=== PATIENT | female | born 1995 | race Caucasian/White ===

== ENCOUNTER 2017-11-18 08:54 | Inpatient (IN) ==
[2017-11-18] MEDS ORDERED: LIDOCAINE 1% (10mg/ml) 2mL INJ PF SDV ID PRN (09:28)
[2017-11-18] MEDS ORDERED: MAG-AL + SIM ORAL LIQUID 30ml PO PRN (09:28)
[2017-11-18] MEDS ORDERED: CARBOPROST 250 MCG/ML INJECTION IM PRN (09:28)
[2017-11-18] MEDS ORDERED: CALCIUM CARBONATE Chewable 500mg TABLET PO PRN (09:28)
[2017-11-18] MEDS ORDERED: ACETAMINOPHEN 500 MG TABLET PO PRN (09:28)
[2017-11-18] MEDS ORDERED: LR 1,000 ML IV PRN (09:28)
[2017-11-18] MEDS ORDERED: METHYLERGONOVINE 0.2 MG/ML INJECTION IM PRN (09:28)
[2017-11-18 09:47] VITALS: BMI 33.4
[2017-11-18] MEDS ORDERED: D5LR 1,000 ML IV SCH (14:45)
[2017-11-18] MEDS ORDERED: HYDROCODONE/APAP 5mg/325mg TABLET PO PRN (19:25)
[2017-11-18] MEDS ORDERED: DiphenhydrAMINE 25 MG CAPSULE PO PRN (19:25)
[2017-11-18] MEDS ORDERED: HYDROCORTISONE 2.5% CREAM 30gm RECTALLY PRN (19:25)
[2017-11-18] MEDS ORDERED: RHOPHYLAC - PHARMACY CONSULT MC ONE (19:25)
[2017-11-18] MEDS ORDERED: OXYTOCIN DRIP 30 UNIT/500 ML ML IV SCH (19:30)
--- NOTE | 2017-11-18 20:17 | Labor and Delivery Note ---
DATE OF DELIVERY 11/18/2017 Amada is a 22-year-old 1 at 40 weeks 3 days gestational age who presented to Maternal/Child in spontaneous labor. I took over when she was 6 cm. She progressed steadily throughout labor. She pushed for less than 30 minutes and had a spontaneous vaginal delivery in the VENITA position. There was a nuchal cord that draped around the posterior neck that was loose and delivered through. Baby is a viable male , Apgars 8/9, weight 4265 g, name Daniel." Baby was vigorous at delivery so he was placed on mom's abdomen and the cord clamping was delayed for more than two minutes. The placenta delivered spontaneously. She had a left periurethral laceration and a right first-degree perineal laceration. These were both bleeding so they were repaired with 2-0 chromic after being injected with local. Mom and baby tolerated the delivery well. [facility]
[2017-11-18] MEDS: IBUPROFEN 800 MG TABLET PO PRN (20:30)
[2017-11-19] MEDS: IBUPROFEN 800 MG TABLET PO PRN ×2 (05:36→13:34)
--- NOTE | 2017-11-19 08:17 | OB/GYN Progress Note ---
OB-PP Progress Note - General PPD1 Maternal Group B Strep: Negative Maternal blood type: A- Maternal Rubella Status: Immune - Subjective Date: 11/19/17 Lochia: Minimal Pain: controlled Voiding: voiding Nausea or Vomiting Present: No - Objective Vital Signs: Last Vital Signs Temp 98.7 F 11/18/17 22:18 Pulse 73 11/18/17 23:10 Resp 18 11/18/17 23:10 BP 123/68 11/18/17 23:10 Urine Output: good General: alert and oriented Abdomen: fundus firm, non-tender Extremities: non-tender Edema: none Laboratory: Laboratory Results - last 24 hr 11/18/17 11/18/17 11/18/17 09:40 09:41 19:26 WBC 15.4 H RBC 4.09 Hgb 13.0 Hct 37.7 MCV 92.2 MCH 31.8 MCHC 34.5 RDW Std Deviation 41.1 Plt Count 206 MPV 10.8 Blood Type A Negative Antibody Screen Positive A* Antibody Identification Immune D RhIG Candidate? Is a candidate - Assessment Assessment: ERIN ORTIZ - Plan Plan: routine care Expected date of discharge: 11/20/17
[2017-11-19] MEDS: DOCUSATE CALCIUM 240 MG CAPSULE PO SCH (10:17)
--- NOTE | 2017-11-19 10:43 | Pharmacy Consult ---
Pharmacy Consult-Rhophylac - Laboratory Information 11/18/17 11/18/17 11/19/17 09:41 19:26 07:26 Hgb /Adult Ratio 0.0000 Blood Type A Negative RhIG Candidate? Is a candidate - Consult Information Rh FACTOR CONSULT: Mother Blood Type = A NEG Child Blood Type = B POS Hgb / Adult Ratio = 0.0000 Will give Rho D Immunglobulin 300mcg IV x 1 dose. Thank you.
[2017-11-19] MEDS ORDERED: RHO(D) IMMUNE GLOBULIN 300 MCG/2 ML INJECTION IVP ONE (10:45)
[2017-11-20] MEDS: IBUPROFEN 800 MG TABLET PO PRN (07:43)
[2017-11-20] MEDS: DOCUSATE CALCIUM 240 MG CAPSULE PO SCH ×2 (07:44→10:32)
--- NOTE | 2017-11-20 08:09 | OB/GYN Progress Note ---
OB-PP Progress Note - General PPD2 Maternal Group B Strep: Negative Maternal blood type: A- Maternal Rubella Status: Immune - Subjective Date: 11/20/17 Lochia: Minimal Pain: controlled Voiding: voiding - Objective Vital Signs: Last Vital Signs Temp 98.1 F 11/20/17 00:20 Pulse 71 11/20/17 00:20 Resp 16 11/20/17 00:20 BP 126/70 11/20/17 00:20 Pulse Ox 98 11/19/17 13:33 General: alert and oriented Abdomen: fundus firm, non-tender Extremities: non-tender Laboratory: Laboratory Results - last 24 hr 11/19/17 07:26 Hgb /Adult Ratio 0.0000 - Assessment Assessment: - Plan Plan: routine care, rhophylac (Given), discharge home, continue PNV
[2017-11-20 08:15] VITALS: BP 120/66; PULSE 66; RESP 14; TEMP 98.2; O2SAT 97
== END 2017-11-20 11:00 | disposition home or self-care (01) | DRG 775 ==
LOC: OBOBS 08:54 → MC 08:57
PROVIDERS: ADMIT Obstetrics & Gynecology; ATTEND Obstetrics & Gynecology

== ENCOUNTER 2018-04-20 16:50 | Inpatient (IN) ==
[2018-04-20] MEDS ORDERED: NS 1,000 ML IV ONE ×2 (17:12→18:57)
[2018-04-20] MEDS: SALINE FLUSH 10ml SYRINGE IVF PRN ×2 (17:24→23:09)
--- NOTE | 2018-04-20 17:30 | Emergency Department Report ---
General Adult HPI - General Chief complaint: Fever Stated complaint: lwr back leg pain,fever,chills,n/d Time Seen by Provider: 04/20/18 17:10 Source: patient Mode of arrival: ambulatory - History of Present Illness HPI narrative: Pt is a 23 yo female who presents to ER for fever. Fever started 2 days ago. Shaking/convulsing with the fever. Has been having pain in her back and legs for 2 wks. Noted warmth, redness and swelling to R knee joint 2 days ago and sxs resolved. Had a fever with swollen glands in the R preauricular and R anterior cervical region and eye redness mid February. Sxs resolved and then a week later she had a fever and congestion and swollen glands. Never sought tx for the febrile illnesses in February. Some diarrhea, nausea. Dysuria last night. [place] like she had something stuck in her throat 3-4 days ago. 5 mos . No current contraception. Is . No known ill contacts. Takes thyroid for hypothyroidism. Hasn't had thyroid checked since . - Related Data Home Medications Medication Instructions Recorded Confirmed Levothyroxine Sodium [Synthroid] 50 mcg PO ACB #0 tab 02/15/16 04/20/18 Acetaminophen [Tylenol] 325 mg PO Q4H PRN 04/20/18 04/20/18 Bisacodyl [Women's Laxative] 5 mg PO HS 04/20/18 04/20/18 Ibuprofen [Advil] 800 tab PO Q8H PRN 04/20/18 04/20/18 Pnv No.95/Ferrous Fum/Folic AC 1 tab PO DAILY 04/20/18 04/20/18 [ Tablet] Previous Rx's Medication Instructions Recorded Amoxicillin 1 tab PO Q12H #19 tab 04/20/18 Allergies Allergy/AdvReac Type Severity Reaction Status Date / Time No Known Drug Allergies Allergy Unknown Verified 04/20/18 17:13 Review of Systems All systems: reviewed and negative except as stated (fever, hips/buttocks hurt, heart races, dizziness) PFSH Patient Stated Medical History Other GI Yes: hx of pancreatitis Herpes No Human Immunodeficiency Virus ( No HIV) Other Infectious Yes: [place] Anesthesia Reactions Yes: difficulty waking up Chronic Pelvic Pain Yes Maternal Gestational Diabetes No Hypothyroidism Surgical History: diagnostic laparscopy for pelvic pain Family History: F - mental illness, HTN M - hashimotos, RA - Social History Smoking status: Never smoker Substance use type: does not use Alcohol intake frequency: holidays/special occasions only Housing: house Household members: family (, son) Current occupational status: employed ([employer]) Current occupation: [employer] LE[employer] Social history: Dr Samaniego - PCP Dr Sullivan -endo Dr Hemphill - OB Physical Exam - Limitations Limitations: no limitations - General General appearance: in no apparent distress - Normal Exams: Head:: Normocephalic without trauma Eyes:: Pupils are PERRLA w/ EOMI Neck:: Full range of motion, without adenopathy Chest/Respirations:: Clear all albert Cardiovascular:: capillary refill Abdomen:: non-distended Integumentary:: No rashes Neurological:: Patient is alert, and oriented, exams w/o gross deficits Psychiatric:: Patient exhibits, appropriate attention - ENT ENT exam: Present: other (tonsils 2+ with exudate on the L) - Neck Neck exam: Present: lymphadenopathy (minimal) - Cardiovascular Cardiovascular exam: Present: tachycardia - Abdominal Exam Abdominal exam: Present: tenderness (suprapubic) Course Vital Signs Temperature 102.9 F H 04/20/18 17:00 Pulse Rate 152 H 04/20/18 17:00 Respiratory Rate 18 04/20/18 17:00 Blood Pressure 120/69 04/20/18 17:00 Pulse Oximetry 100 04/20/18 17:00 Temperature 102.9 F H 04/20/18 17:01 Pulse Rate 152 H 04/20/18 17:01 Respiratory Rate 18 04/20/18 17:01 Blood Pressure 120/69 04/20/18 17:00 Pulse Oximetry 100 04/20/18 17:01 Medical Decision Making - MDM Narrative Medical decision making narrative: Patient tested positive for strep pharyngitis. She was given 2 L NS as she was tachycardic and she is also . She was given Tylenol for her fever and her first dose of Amoxil. She remained tachycardic and while receiving her 3rd L of NS c/o CP. EKG revealed an incomplete RBBB. Troponin was neg. Concern for rheumatic fever given her + strep, recurrent fevers 6 weeks ago, migratory arthralgias, abnl findings on EKG. Dr. Diaz will admit for OBS. She was given Rocephin 1gm IV in addition to the amoxil p.o. which had initially been given. - Lab Data Result diagrams: 04/20/18 17:26 04/20/18 17:26 Disposition Clinical Impression: Strep pharyngitis Disposition: 02 To [facility] Acute Care Condition: Stable Instructions: Strep Throat (ED), Potassium Content of Foods List (ED) Care Plan: Take antibiotics as directed. Tylenol and/or ibuprofen as needed. Follow up with your PCP in the next few days if symptoms aren't improving. Drink plenty of fluids. Follow up with your doctor re: your thyroid studies. Your potassium was slightly low. Increase potassium rich foods in your diet. Prescriptions: New Amoxicillin 1 tab PO Q12H #19 tab Continue Levothyroxine Sodium [Synthroid] 50 mcg PO ACB #0 tab Bisacodyl [Women's Laxative] 5 mg PO HS Acetaminophen [Tylenol] 325 mg PO Q4H PRN PRN Reason: Pain Pnv No.95/Ferrous Fum/Folic AC [ Tablet] 1 tab PO DAILY Ibuprofen [Advil] 800 tab PO Q8H PRN PRN Reason: Pain Referrals: Jayne Escalera DO [Primary Care Provider] - Time of Disposition: 19:00 - Seen By: midlevel
[2018-04-20] MEDS ORDERED: ACETAMINOPHEN 500 MG TABLET PO ONE (19:08)
[2018-04-20] MEDS ORDERED: AMOXICILLIN 875 MG TABLET PO ONE (19:14)
[2018-04-20] MEDS ORDERED: NS with KCL 20 mEq 1,000 ML IV SCH (20:00)
[2018-04-20] MEDS ORDERED: CEFTRIAXONE 1 G in NS 100 ML IV ONE ×2 (20:41→23:55)
[2018-04-20] MEDS ORDERED: ACETAMINOPHEN 325 MG TABLET PO PRN (22:57)
[2018-04-20] MEDS ORDERED: HYDROCODONE/APAP 5mg/325mg TABLET PO PRN (22:57)
[2018-04-20] MEDS ORDERED: MORPHINE SULFATE 2mg INJECTION IVP PRN (22:57)
[2018-04-20] MEDS ORDERED: CEFTRIAXONE 2 GM in NS 100 ML IV SCH (22:57)
[2018-04-20] MEDS ORDERED: IBUPROFEN 600 MG TABLET PO PRN (22:57)
[2018-04-20 23:04] VITALS: BMI 26.4
[2018-04-20] MEDS: NS with KCL 20 mEq 1,000 ML IV SCH (23:09)
[2018-04-20] MEDS: ONDANSETRON 4 MG/2 ML INJECTION IVP PRN (23:48)
[2018-04-21] MEDS: CLINDAMYCIN PB 600 MG/50 ML BAG IV SCH ×2 (00:08→05:47)
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
[2018-04-21] MEDS ORDERED: METOCLOPRAMIDE 10mg/2ml INJECTION IVP PRN (01:32)
[2018-04-21] MEDS: LEVOTHYROXINE 50 MCG TABLET PO SCH (05:47)
[2018-04-21] MEDS: ONDANSETRON 4 MG/2 ML INJECTION IVP PRN (06:30)
--- NOTE | 2018-04-21 07:49 | XRay Report ---
INDICATION: cp PROCEDURE: CHEST 2-VIEWS UPRIGHT (PA & LAT) Encounter: Initial COMPARISON: None FINDINGS: Airspace consolidation in the right upper lobe and minimal infiltrate in the right lower lobe. Left lung is clear. Trace right effusion. No pneumothorax. The heart size, mediastinal contours and pulmonary vascularity are within normal limits. There is no significant skeletal abnormality. IMPRESSION: Right-sided pneumonia. .
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
[2018-04-21] MEDS: NS with KCL 20 mEq 1,000 ML IV SCH ×2 (09:44→21:53)
[2018-04-21] MEDS ORDERED: ALBUTEROL/IPRATROPIUM 2.5mg-0.5mg/3ml NEB AEROSOL PRN (09:58)
[2018-04-21] MEDS: FAMOTIDINE 20 MG TABLET PO SCH (11:03)
[2018-04-21] MEDS: NAPROXEN 250 MG TABLET PO SCH ×2 (11:03→17:03)
[2018-04-21] MEDS: AZITHROMYCIN IV 500 MG in NS 250ml 250 ML IV SCH (11:04)
[2018-04-21] MEDS: SALINE FLUSH 10ml SYRINGE IVF PRN ×2 (11:07→11:58)
[2018-04-21] MEDS ORDERED: NS FLUSH BAG 500ml IV PRN (11:08)
[2018-04-21] MEDS: LACTOBACILLUS (15B cfu) CAPSULE PO SCH ×2 (11:15→17:03)
[2018-04-21] MEDS: ALBUTEROL/IPRATROPIUM 2.5mg-0.5mg/3ml NEB AEROSOL SCH ×3 (17:58→20:55)
[2018-04-21] MEDS ORDERED: PENICILLIN G BENZATHINE IM ONE (19:21)
[2018-04-21] MEDS ORDERED: CEFTRIAXONE 2 GM in NS 100 ML IV SCH (20:00)
[2018-04-22] MEDS: NS with KCL 20 mEq 1,000 ML IV SCH ×2 (04:14→15:11)
[2018-04-22] MEDS: LEVOTHYROXINE 50 MCG TABLET PO SCH (06:20)
[2018-04-22] MEDS: ALBUTEROL/IPRATROPIUM 2.5mg-0.5mg/3ml NEB AEROSOL SCH ×2 (07:39→11:09)
[2018-04-22 08:29] VITALS: BP 112/67
[2018-04-22] MEDS: NAPROXEN 250 MG TABLET PO SCH (09:00)
[2018-04-22] MEDS: LACTOBACILLUS (15B cfu) CAPSULE PO SCH ×2 (09:00→11:19)
[2018-04-22] MEDS: FAMOTIDINE 20 MG TABLET PO SCH (09:01)
[2018-04-22 11:12] VITALS: O2SAT 98
[2018-04-22] MEDS: AZITHROMYCIN IV 500 MG in NS 250ml 250 ML IV SCH (11:18)
[2018-04-22 11:34] VITALS: PULSE 96; RESP 16; TEMP 97.8
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
--- NOTE | 2018-04-23 08:36 | XRay Report ---
INDICATION: pneumonia PROCEDURE: CHEST 2-VIEWS UPRIGHT (PA & LAT) Encounter: Initial COMPARISON: April 20, 2018 FINDINGS: Increasing density of the right upper lobe wedge-shaped region of consolidation. No additional areas of airspace disease. Small right effusion. No pneumothorax. Heart size and mediastinal contours are stable. Pulmonary vascularity is normal. Impression: Persistent right upper lobe pneumonia, now with a small parapneumonic effusion. .
--- NOTE | 2018-04-24 11:02 | Echocardiogram ---
DATE OF PROCEDURE April 21, 2018 REFERRING PHYSICIAN Randolph Robles MD PROCEDURE 1. 2-D echo. This is a two-dimensional echo with spectral Doppler, color-flow and M-mode. It was obtained in a patient with possible rheumatic fever and shortness of breath. Left atrial dimension is normal. Left ventricle end-diastolic dimension is normal. Left ventricle wall thickness is normal. LV systolic function is normal with ejection fraction of 60%. Right atrium is normal. Right ventricle is normal. Aortic root dimension is normal. Mitral, aortic, tricuspid, pulmonary valves are morphologically normal with trace of tricuspid regurgitation and trace of pulmonary insufficiency with normal estimated pulmonary artery systolic pressure of 24. There is no pericardial effusion. IMPRESSION 1. Essentially normal echo with trivial tricuspid and pulmonary insufficiency. MTDD
== END 2018-04-22 14:59 | disposition home or self-care (01) | DRG 871 ==
LOC: EDHOLD 16:50 → ED 16:50 → SUATTDRO 22:22 → MED 22:50 → SUATTDRO 04-21 18:18
PROVIDERS: ADMIT Hospitalist; ATTEND Internal Medicine